=== PATIENT | female | born 1965 | race Caucasian/White ===

== ENCOUNTER → 2016-09-19 | Outpatient (CLI) | payer BC ==
[2016-03-12 16:17] VITALS: BP 113/69
--- NOTE | 2016-09-19 12:36 | MRI ---
MRI lumbar spine without contrast Indication: lower back pain Technique: Multisequence, multiplanar MR images of the lumbar spine were obtained without IV contras t. Comparison: MRI lumbar spine 12/24/13, CT abdomen pelvis May 21, 2012 and January 10, 2012 Findings: There is a partial sacralization of the L5 vertebral body. There is a 1 cm T1/T2 hypointen se lesion within the left T10 vertebral body, which is only evaluated on the sagittal sequences. The lesion was not included in the field of view on the prior MRI examination but appears grossly stabl e in size dating back to the patient's CT abdomen/pelvis exam of 2011. The lesion demonstrates no ap preciable perilesional edema or other aggressive features. Remaining visualized marrow signal is nor mal. No acute fracture or subluxation is identified. The conus terminates normally at L1-L2. The cau da equina is unremarkable. The imaged paraspinal soft tissues demonstrate no gross, unexpected findi ngs. T11-T12, T12-L1, L1-L2, L2-L3, L3-L4: Unremarkable L4-L5: Mild leftward disk bulge and facet arthropathy with mild resultant narrowing of the left late ral recess and neural foramen, overall unchanged since prior exam. L5-S1: Mild facet arthropathy. Otherwise unremarkable. Impression: 1. Mild leftward disk bulge at L4-L5, resulting in overall stable mild left lateral recess and left foraminal narrowing. 2. 1 cm T1/T2 hypointense lesion within the left T10 vertebral body. The lesion is indeterminate but demonstrates no perilesional edema or other aggressive features and appears grossly stable dating b ack to 2011, suggesting benignity. The lesion is densely sclerotic on CT with suggestion of internal intrinsic T1 hyperintense signal, possibly reflecting an atypical intraosseous hemangioma. Reported By:
== END ==
LOC: RAD 10:21
PROVIDERS: ATTEND Internal Medicine
DX: M51.37 Other intervertebral disc degeneration, lumbosacral region (principal)
CPT/HCPCS: 72148

== ENCOUNTER → 2016-12-12 | Outpatient (CLI) | payer BC ==
[2016-03-12 16:17] VITALS: BP 113/69
--- NOTE | 2016-12-13 10:36 | MRI ---
MRI left foot without contrast Indication: Foot pain Comparison: Radiographs 03/26/2016 Technique: Multiplanar multi sequence MR images of the left foot were obtained without contrast. Findings: There is healed remote calcaneal fracture post ORIF with 2 Felipe screws, as seen on the p revious radiograph. Associated susceptibility artifact limits evaluation of the marrow signal in this region. No acute fracture or suspicious marrow signal is appreciated. There is mild degenerative dis ease of the posterior subtalar and talonavicular joints. Mild degenerative changes of the great toe M TP joint are also noted with a bipartite nonedematous medial hallux sesamoid. The Lisfranc joint and ligaments are normal. There is irregularity of the medial navicular with thickening and intermediate signal of the distal p osterior tibialis tendon, which is otherwise grossly intact; these findings are suggestive for previo us tendon repair/reattachment. Small foci of susceptibility in this region are in keeping with previo us surgery. The remaining tendons about the foot and ankle are otherwise unremarkable. The major stab ilizing ligaments about the ankle are grossly intact. The plantar fascia is within normal limits. The re is mild dorsal foot subcutaneous edema, without discrete collection. Impression: 1. Postsurgical changes of previous calcaneal ORIF and distal posterior tibialis tendon repair. No ev idence for acute skeletal abnormality. 2. Mild degenerative changes of the posterior subtalar, talonavicular, and great toe MTP joints. Reported By:
== END ==
LOC: RAD 14:21
PROVIDERS: ATTEND Internal Medicine
DX: M79.672 Pain in left foot (principal); Z98.890 Other specified postprocedural states
CPT/HCPCS: 73721

== ENCOUNTER → 2017-05-29 | Outpatient (CLI) | payer BC ==
[2016-03-12 16:17] VITALS: BP 113/69
[2017-05-29 08:51] LABS: STOOL FOR WBC POSITIVE (NEGATIVE)
[2017-05-29 09:15] LABS: CRYPTOSPORIDIUM PARVUM ANTIGEN NEGATIVE (NEGATIVE); GIARDIA LAMBLIA ANTIGEN NEGATIVE (NEGATIVE)
== END | disposition home or self-care (01) | DRG 392 ==
LOC: LAB 08:00
PROVIDERS: ATTEND Internal Medicine
DX: R19.7 Diarrhea, unspecified (principal); R50.9 Fever, unspecified; R10.13 Epigastric pain
CPT/HCPCS: 82274; 83630; 87045; 87328; 87329; 87336; 87427; 87449; 87493

== ENCOUNTER 2017-06-19 10:15 | Day surgery (SDC) | payer BC ==
[2017-06-19] MEDS ORDERED: D5 LR 1000 ML 1,000 ML IV ONE (10:24)
[2017-06-19 12:51] VITALS: BP 120/78
[2017-06-19] MEDS ORDERED: DIPRIVAN 1 GM ONE (15:13)
== END 2017-06-19 12:30 | disposition home or self-care (01) ==
LOC: SURG1 10:15
PROVIDERS: ATTEND Internal Medicine Gastroenterology
PROC: 0DJ08ZZ Inspection of Upper Intestinal Tract, Via Natural or Artificial Opening Endoscopic (ICD-10-PCS; principal; 2017-06-19 14:00)
PROC: 0DB88ZX Excision of Small Intestine, Via Natural or Artificial Opening Endoscopic, Diagnostic (ICD-10-PCS; principal; 2017-06-19 14:00)
PROC: 0DB68ZX Excision of Stomach, Via Natural or Artificial Opening Endoscopic, Diagnostic (ICD-10-PCS; principal; 2017-06-19 14:00)
DX: R10.13 Epigastric pain (principal); R11.0 Nausea; R19.7 Diarrhea, unspecified; R14.0 Abdominal distension (gaseous); K29.60 Other gastritis without bleeding; K20.8 Other esophagitis; K21.9 Gastro-esophageal reflux disease without esophagitis
CPT/HCPCS: J3490; J7120

== ENCOUNTER 2019-03-04 12:20 | Observation (INO) ==
[2019-03-04 12:27] VITALS: BMI 34.7
--- NOTE | 2019-03-04 12:55 | DR.SOBA ---
HPI Time Seen Time Seen by Provider: 03/04/19 12:37 Primary Care Physician Primary Care Physician: KARAN ROBERSON Complaints Chief Complaint Doctors Comments: CHEST TIGHTNESS, INCREASING SOB TIMES Chief Complaint:: PT C/O SOB TIGHT CHEST,,,, PT WENT TO WALK IN CLINIC IN [place] ON FRIDAY ( OMNICEF AND STERIODS ) PT C/O SHE NOT GETTING BETTER ,BR Reviewed Nurses Notes Reviewed: Yes Source History Provided: Patient Mode of Arrival Mode of Arrival: Ambulatory Timing Onset of Chief Complaint: 02/28/19 Duration Duration: Days Context Onset:: At Rest and With Light Exertion PE Risk Factors:: None History of:: None PMH PMH Past Medical History: Yes Past Medical History: Anxiety and Depression Past Surgical History: Yes Surgical History: 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, 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, Hysterectomy, Ortho Surgery and Tonsillectomy Family History History of Family Medical Conditions: Yes Family Medical History: Cancer, Coronary Artery Disease, Sudden Cardiac and Hypertension Social History Does patient currently use any type of tobacco product: Yes Have you used tobacco products in the last 12 months: Yes Type of Tobacco Use: Cigarettes How many years tobacco product used: 35 Does any household member use tobacco: No Alcohol Use: None Do you use any recreational Drugs:: No Lives With: Family Lives Where: Home infectious screening In the last 2 months have you had wt loss of >10#?: NO Have you had fever, night sweats or hemotysis?: No Have you traveled outside the country in the last 6 months?: No Isolation: Standard PE Vital Signs Vitals: Temperature 97.5 F Pulse Rate 64 Respiratory Rate 15 Blood Pressure [Right Arm] 113/66 Blood Pressure [Left Arm] 120/66 Blood Pressure 139/74 O2 Sat by Pulse Oximetry 98 ROR Labs Reviewed Result Diagrams: 03/04/19 12:56 03/04/19 12:56 Laboratory: WBC 9.4 X10^3/uL (3.6-10.0) 03/04/19 12:56 RBC 4.84 X10^6/uL (3.5-5.4) 03/04/19 12:56 Hgb 13.9 g/dL (12.0-16.0) 03/04/19 12:56 Hct 41.2 % (36.0-47.0) 03/04/19 12:56 MCV 85.2 fL (80.0-100.0) 03/04/19 12:56 MCH 28.7 pg (27.0-34.0) 03/04/19 12:56 MCHC 33.7 g/dL (33.0-35.0) 03/04/19 12:56 RDW 15.5 % (11.6-16.5) 03/04/19 12:56 Plt Count 332 X10^3/uL (150.0-450.0) 03/04/19 12:56 MPV 7.3 fL (7.4-11.0) L 03/04/19 12:56 Neut % (Auto) 76.3 % (42.0-75.0) H 03/04/19 12:56 Lymph % (Auto) 20.2 % (21.0-51.0) L 03/04/19 12:56 [place] % (Auto) 2.8 % (0.0-13.0) 03/04/19 12:56 Eos % (Auto) 0.1 % (0.9-2.9) L 03/04/19 12:56 Baso % (Auto) 0.6 % (0.2-1.0) 03/04/19 12:56 Neut # (Auto) 7.2 x10^3/uL (2.2-4.8) H 03/04/19 12:56 Lymph # (Auto) 1.9 X10^3/uL (1.3-2.9) 03/04/19 12:56 [place] # (Auto) 0.3 x10^3/uL (0.3-0.8) 03/04/19 12:56 Eos # (Auto) 0.0 x10^3/uL (0.0-0.2) 03/04/19 12:56 Baso # (Auto) 0.1 X10^3/uL (0.0-0.1) 03/04/19 12:56 Absolute Nucleated RBC 0.1 /100WBC 03/04/19 12:56 D-Dimer 250 ng/mL (0-400) 03/04/19 12:56 Sodium 138 mmol/L (136-145) 03/04/19 12:56 Corrected Sodium 140 mmol/L (136-145) 03/04/19 12:56 Potassium 4.0 mmol/L (3.5-5.1) 03/04/19 12:56 Chloride 103 mmol/L (98-107) 03/04/19 12:56 Carbon Dioxide 27.0 mmol/L (21-32) 03/04/19 12:56 BUN 15 mg/dL (7-18) 03/04/19 12:56 Creatinine 1.26 mg/dL (0.55-1.02) H 03/04/19 12:56 Est GFR (MDRD) Af Amer 58 (>60) L 03/04/19 12:56 Est GFR (MDRD) Non-Af 48 (>60) L 03/04/19 12:56 Glucose 203 mg/dL (65-99) H 03/04/19 12:56 Calcium 8.4 mg/dL (8.5-10.1) L 03/04/19 12:56 Corrected Calcium 9.1 mg/dL (8.5-10.1) 03/04/19 12:56 Total Bilirubin 0.10 mg/dL (0.2-1.0) L 03/04/19 12:56 AST 24 Units/L (15-37) 03/04/19 12:56 ALT 36 Units/L (12-78) 03/04/19 12:56 Alkaline Phosphatase 95 Units/L (46-116) 03/04/19 12:56 Creatine Kinase 106 Units/L (26-192) 03/04/19 12:56 CK-MB (CK-2) 1.7 ng/mL (0-4.0) 03/04/19 12:56 CK/CKMB % Calc 1.6 % (<4) 03/04/19 12:56 Troponin I < 0.02 ng/mL (0-1.5) 03/04/19 12:56 B-Natriuretic Peptide 41.7 pg/mL (0-79) 03/04/19 12:56 Total Protein 7.0 g/dL (6.4-8.2) 03/04/19 12:56 Albumin 3.1 g/dL (3.4-5.0) L 03/04/19 12:56 Globulin 3.9 g/dL (2.5-4.5) 03/04/19 12:56 Albumin/Globulin Ratio 0.8 Ratio (1.1-2.1) L 03/04/19 12:56 Specimen Type Clean catch urine 03/04/19 13:20 Urine Color Pale yellow (YELLOW) 03/04/19 13:20 Urine Appearance Clear (CLEAR) 03/04/19 13:20 Urine pH 6.0 (5.0 - 8.0) 03/04/19 13:20 Ur Specific [place] 1.010 (1.000-1.030) 03/04/19 13:20 Urine Protein Negative (NEGATIVE) 03/04/19 13:20 Urine Glucose (UA) 3+ (NEGATIVE) 03/04/19 13:20 Urine Ketones Negative (NEGATIVE) 03/04/19 13:20 Urine Occult Blood Negative (NEGATIVE) 03/04/19 13:20 Urine Nitrite Negative (NEGATIVE) 03/04/19 13:20 Urine Bilirubin Negative (NEGATIVE) 03/04/19 13:20 Urine Urobilinogen Normal (NORMAL) 03/04/19 13:20 Ur Leukocyte Esterase Negative (NEGATIVE) 03/04/19 13:20 Opioid Opioid Risk Tool Age (Sea box if 16-45): No History of Preadolescent Sexual Abuse: No Total: 0 Total Score Risk Category: Low Risk Copyright: Ta JO predicting aberrant behaviors Diagnosis Discharge Problem: Acute respiratory distress, Chest pain, Acute bronchitis, Failure of outpatient treatment Instructions Forms: Excuse From Work Patient Portal
[2019-03-04 13:09] LABS: BASOPHILS # (AUTO) 0.1 X10^3/uL (0.0-0.1); BASOPHILS % (AUTO) 0.6 % (0.2-1.0); EOSINOPHILS % (AUTO) 0.1 % (0.9-2.9); HEMATOCRIT 41.2 % (36.0-47.0); HEMOGLOBIN 13.9 g/dL (12.0-16.0); LYMPHOCYTES # (AUTO) 1.9 X10^3/uL (1.3-2.9); LYMPHOCYTES % (AUTO) 20.2 % (21.0-51.0); MEAN CORPUSCULAR HEMOGLOBIN 28.7 pg (27.0-34.0); MEAN CORPUSCULAR HGB CONC 33.7 g/dL (33.0-35.0); MEAN CORPUSCULAR VOLUME 85.2 fL (80.0-100.0); MEAN PLATELET VOLUME 7.3 fL (7.4-11.0); MONOCYTES # (AUTO) 0.3 x10^3/uL (0.3-0.8); MONOCYTES % (AUTO) 2.8 % (0.0-13.0); NEUTROPHILS # (AUTO) 7.2 x10^3/uL (2.2-4.8); NEUTROPHILS % (AUTO) 76.3 % (42.0-75.0); PLATELET COUNT 332 X10^3/uL (150.0-450.0); RED BLOOD COUNT 4.84 X10^6/uL (3.5-5.4); RED CELL DISTRIBUTION WIDTH 15.5 % (11.6-16.5); WHITE BLOOD COUNT 9.4 X10^3/uL (3.6-10.0)
[2019-03-04 13:19] LABS: ALBUMIN 3.1 g/dL (3.4-5.0); CALCIUM 8.4 mg/dL (8.5-10.1); COR CA(FOR HYPOALB) 9.1 mg/dL (8.5-10.1); CREATININE 1.26 mg/dL (0.55-1.02)
[2019-03-04 13:32] LABS: CKMB % 1.6 % (<4); CREATINE KINASE 106 Units/L (26-192); CREATINE KINASE MB 1.7 ng/mL (0-4.0); TROPONIN I < 0.02 ng/mL (0-1.5)
[2019-03-04 13:33] LABS: BILIRUBIN,URINE NEGATIVE (NEGATIVE); BLOOD/HEMOGLOBIN,URINE NEGATIVE (NEGATIVE); GLUCOSE, URINE 3+ (NEGATIVE); KETONES,URINE NEGATIVE (NEGATIVE); LEUKOCYTE ESTERASE ,URINE NEGATIVE (NEGATIVE); NITRITES,URINE NEGATIVE (NEGATIVE); PROTEIN,URINE NEGATIVE (NEGATIVE); UROBILINOGEN,URINE NORMAL (NORMAL)
[2019-03-04 13:36] LABS: APPEARANCE,URINE CLEAR (CLEAR); COLOR,URINE PALE YELLOW (YELLOW)
[2019-03-04] MEDS ORDERED: LEVAQUIN PREMIX IV 750 MG 750 MG/150 ML BAG IV ONE ×2 (14:49→15:04)
[2019-03-04] MEDS ORDERED: NS 1/2 1000 ML IV 1,000 ML IV ONE (15:03)
--- NOTE | 2019-03-04 15:03 | RAD ---
HISTORYCough.LUX WORKMAN/LAT ADULTCOMPARISONMar 2018.FINDINGSThe trachea is midline. The cardiac silhouette is unremarkable. There is some prominence of central bronchopulmonary markings in both lungs. Some fullness to the right and left hilum. The lungs are clear of consolidation, focal infiltrate, effusion or pneumothorax. The bony thorax is unremarkable.IMPRESSION1. Bronchitis versus reactive airway disease.2. Bilateral hilar prominence. Hilar adenopathy is not excluded. Clinical correlation is recommended. Consider chest CT as clinically warranted.Electronically signed by: MO ASCENCIO (Mar 04, 2019 15:02:28)
[2019-03-04] MEDS ORDERED: PERCOCET TAB 5/325 MG ONE (15:12)
[2019-03-04] MEDS ORDERED: PERCOCET TAB 5/325 MG PO ONE (15:24)
[2019-03-04] MEDS: NS 1/2 1000 ML IV 1,000 ML IV SCH (15:25)
[2019-03-04] MEDS ORDERED: SALINE 3% 15 ML NEB TX NEB ONE ×2 (15:55→16:09)
[2019-03-04] MEDS ORDERED: ZANAFLEX PO SCH (16:04)
[2019-03-04] MEDS ORDERED: TESSALON PERLES PO PRN (16:04)
[2019-03-04] MEDS ORDERED: XANAX PO PRN (16:04)
[2019-03-04] MEDS: DUONEB 0.5 MG/3 MG (3 mL) NEB SCH ×2 (16:35→20:55)
[2019-03-04 16:46] LABS: CKMB % 1.5 % (<4); CREATINE KINASE 108 Units/L (26-192); CREATINE KINASE MB 1.6 ng/mL (0-4.0); TROPONIN I < 0.02 ng/mL (0-1.5)
[2019-03-04] MEDS ORDERED: DUONEB 0.5 MG/3 MG (3 mL) NEB SCH (17:00)
[2019-03-04] MEDS: REQUIP PO SCH (20:29)
[2019-03-04] MEDS: LIPITOR TAB 20 MG PO SCH (20:29)
[2019-03-04] MEDS: VIBRAMYCIN 100 MG in D5W 250 ML IV 250 ML IV SCH (20:30)
[2019-03-04] MEDS: LOVENOX INJ 40 MG SYR SC SCH (20:30)
[2019-03-04] MEDS: LOPRESSOR TAB 50 MG PO SCH (20:30)
[2019-03-04] MEDS: PERCOCET TAB 5/325 MG PO PRN (20:45)
[2019-03-04] MEDS: ZANAFLEX PO PRN (20:45)
[2019-03-04 22:47] LABS: CKMB % 1.5 % (<4); CREATINE KINASE 91 Units/L (26-192); CREATINE KINASE MB 1.4 ng/mL (0-4.0); TROPONIN I < 0.02 ng/mL (0-1.5)
[2019-03-05] MEDS: DUONEB 0.5 MG/3 MG (3 mL) NEB SCH ×6 (01:45→20:20)
[2019-03-05] MEDS ORDERED: NS 1/2 1000 ML IV 1,000 ML IV ONE (05:35)
[2019-03-05 05:38] LABS: BASOPHILS % (AUTO) 0.4 % (0.2-1.0); EOSINOPHILS # (AUTO) 0.1 x10^3/uL (0.0-0.2); EOSINOPHILS % (AUTO) 0.6 % (0.9-2.9); HEMATOCRIT 39.7 % (36.0-47.0); HEMOGLOBIN 13.1 g/dL (12.0-16.0); LYMPHOCYTES # (AUTO) 6.4 X10^3/uL (1.3-2.9); LYMPHOCYTES % (AUTO) 55.7 % (21.0-51.0); MEAN CORPUSCULAR HEMOGLOBIN 28.6 pg (27.0-34.0); MEAN CORPUSCULAR VOLUME 86.8 fL (80.0-100.0); MONOCYTES # (AUTO) 0.6 x10^3/uL (0.3-0.8); MONOCYTES % (AUTO) 5.4 % (0.0-13.0); NEUTROPHILS # (AUTO) 4.3 x10^3/uL (2.2-4.8); NEUTROPHILS % (AUTO) 37.9 % (42.0-75.0); PLATELET COUNT 323 X10^3/uL (150.0-450.0); RED BLOOD COUNT 4.57 X10^6/uL (3.5-5.4); RED CELL DISTRIBUTION WIDTH 15.4 % (11.6-16.5); WHITE BLOOD COUNT 11.4 X10^3/uL (3.6-10.0)
[2019-03-05 06:06] LABS: ALANINE AMINOTRANSFERASE 33 Units/L (12-78); ALBUMIN 2.8 g/dL (3.4-5.0); ALKALINE PHOSPHATASE 82 Units/L (46-116); ASPARTATE AMINO TRANSFERASE 21 Units/L (15-37); BLOOD UREA NITROGEN 12 mg/dL (7-18); CALCIUM 8.4 mg/dL (8.5-10.1); CARBON DIOXIDE 28.6 mmol/L (21-32); CHLORIDE 104 mmol/L (98-107); CHOL/HDL RATIO 5.7 (0.0-5.0); CHOLESTEROL 171 mg/dL (0-200); COR CA(FOR HYPOALB) 9.4 mg/dL (8.5-10.1); CREATINE KINASE 75 Units/L (26-192); CREATINE KINASE MB 1.5 ng/mL (0-4.0); CREATININE 0.87 mg/dL (0.55-1.02); HDL CHOLESTEROL 30 mg/dL (40-60); SODIUM 141 mmol/L (136-145); TOTAL PROTEIN 6.4 g/dL (6.4-8.2); TRIGLYCERIDES 133 mg/dL (0-150); TROPONIN I < 0.02 ng/mL (0-1.5); eGFR NON BLACK RACES > 60 (>60)
[2019-03-05] MEDS: NS 1/2 1000 ML IV 1,000 ML IV SCH ×2 (06:10→18:28)
[2019-03-05 07:00] LABS: PLATELET MORPHOLOGY COMMENT NORMAL (NORMAL)
[2019-03-05] MEDS: LOPRESSOR TAB 50 MG PO SCH ×2 (09:40→21:31)
[2019-03-05] MEDS: CYMBALTA PO SCH (09:40)
[2019-03-05] MEDS: NEURONTIN CAP 300 MG PO SCH (09:40)
[2019-03-05] MEDS: LOVENOX INJ 40 MG SYR SC SCH (09:41)
[2019-03-05] MEDS: VIBRAMYCIN 100 MG in D5W 250 ML IV 250 ML IV SCH ×2 (09:41→21:31)
[2019-03-05] MEDS: NexIUM PO SCH (09:42)
[2019-03-05] MEDS ORDERED: TUSSIONEX PENNKINETIC SUSP PO PRN (11:04)
[2019-03-05] MEDS: PERCOCET TAB 5/325 MG PO PRN ×2 (11:06→21:32)
[2019-03-05] MEDS: ROBITUSSIN DM PO SCH ×3 (13:50→21:31)
[2019-03-05] MEDS: LEVAQUIN PREMIX IV 750 MG 750 MG/150 ML BAG IV SCH (14:25)
--- NOTE | 2019-03-05 15:57 | DR.H&P ---
H&P - History & Physical for Day of: H&P Date: 03/04/19 - Chief Complaint Chief Complaint: CHEST TIGHTNESS, CP, CCC - History of Present Illness History of Present Illness: PT IS 53 WF ER ADMISSION AFTER PRESENTING WITH CO CHEST TIGHTNESS AND SOB WITH CP AND RECENT CCC. PT REPORTS SHE WENT TO WALK IN CLINIC IN [place] ON FRIDAY ( OMNICEF AND STERIODS ) WITHOUT IMPROVEMENT. PT REPORTS SHE WAS NEGATIVE FOR THE FLU AT THAT TIME. PT HAS PMH OF MDD, GILBERT. PT DENIES ANY CARDIAC HISTORY. PT HAD CXR WITH BRONCHITIS. PT ADMITTED FOR TREATMENT AND EVALUATION OF ACUTE ILLNESS, R/O AMI. 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, Hysterectomy, Ortho Surgery, Tonsillectomy - Family History Family Medical History: Diabetes Mellitus, Cancer, DC, Coronary Artery Disease, Sudden Cardiac , Hypertension - Social History Does patient currently use any type of tobacco product: Yes Have you used tobacco products in the last 12 months: Yes Type of Tobacco Use: Cigarettes How many years tobacco product used: 35 Does any household member use tobacco: No Alcohol Use: None Drug Use: None - Medications Home Medications: No Known Drug Allergies Allergy (Verified 03/04/19 12:21) CONTINUE taking the following medications duloxetine 60 mg PO DAILY 03/04/19 [History] esomeprazole magnesium [Nexium] 40 mg PO DAILY 03/04/19 [History] gabapentin [Neurontin] 300 mg PO DAILY 03/04/19 [History] oxycodone-acetaminophen [Percocet] 1 tab PO PRN PRN 03/04/19 [History] tizanidine 2 mg PO PRN PRN 03/04/19 [History] - Review of Systems Constitutional: Fever, Chills, Weakness Eyes: No Symptoms Reported ENT: Nose Discharge, Throat Pain Respiratory: Cough, Shortness of Breath, SOB with Excertion, Wheezing Cardiovascular: Chest Pain. denies: Edema Gastrointestinal: No Symptoms Reported, Nausea Genitourinary: No Symptoms Reported Musculoskeletal: No Symptoms Reported Skin: No Symptoms Reported Neurological: No Symptoms Reported - Physical Exam Vital Signs: Temperature 98.1 F Pulse Rate [Right] 58 Pulse Rate 87 Respiratory Rate 18 Blood Pressure [Right Arm] 113/66 Blood Pressure [Left Arm] 134/70 Blood Pressure 139/74 O2 Sat by Pulse Oximetry 99 Oriented: Normal Eyes: Normal Ear: Normal Nose: Normal Throat: Dry Respiratory: Wheezes Throughout, RLL Diminished, LLL Diminished Cardiovascular: Normal. negative: Edema : Normal Auscultation: Bowel Sounds: Normal Palpation: Normal Tenderness: Normal Skin: Normal Musculoskeletal: Normal Psychiatric: Anxiety Affect: Anxious Speech Pattern: Clear, Appropriate - Assessment/Plan (1) Acute bronchitis Status: Acute Plan: ADMIT SERIAL CE AND EKG. RESP CONSULT, IV ATBX, SUPPLEMENTAL O2 PRN. CXR ON ADMISSION. DUO NEBS, BP MONITORING. SPUTUM CULTURE ON ADMISSION (2) Chest pain Status: Acute (3) Failure of outpatient treatment Status: Acute (4) Gastroesophageal reflux disease Status: Active (5) Generalized anxiety disorder Status: Active - Allergies Allergies/Adverse Reactions: Allergies Allergy/AdvReac Type Severity Reaction Status Date / Time No Known Drug Allergies Allergy Verified 03/04/19 12:21
--- NOTE | 2019-03-05 16:06 | PCM.PROG ---
Progress Note - Progress Note for Day of Date of Exam: 03/05/19 - Subjective Subjective: PT IS 53 WF ER ADMISSION WITH FAILED OUTPT BRONCHITIS. PT ALSO CO CHEST TIGHTNESS ON ADMISSION, PT HAD SERIAL CE AND EKGS OBTAINED ON ADMISSION. PT CONTINUES WITH DIFFUSE EXPIRATORY WHEEZES AND RHONCHI THIS AM. PT IS AFEBRILE. SPUTUM CULTURE ORDERD. PT ENCOURAGED TO OBTAIN SPUTUM. ROBITUSSIN DM ADDED WITH IV SOLU MEDROL AND PULMONARY TOILETING. WILL REPEAT AM LABS AND CXR. - Past Medical Family Social History Past Med/Fam/Surg Hx: No changes since H&P Allergies: Allergies No Known Drug Allergies Allergy (Verified 03/04/19 12:21) - Review of Systems ROS: No change since H&P - Vital Signs and I&O's Vital Signs: Temperature 98.1 F Pulse Rate [Right] 58 Pulse Rate 87 Respiratory Rate 18 Blood Pressure [Right Arm] 113/66 Blood Pressure [Left Arm] 134/70 Blood Pressure 139/74 O2 Sat by Pulse Oximetry 99 Intake and Output: Intake & Output 03/03/19 03/04/19 03/05/19 03/06/19 11:59 11:59 11:59 11:59 Intake Total 1280 / 1280 Balance 1280 / 1280 - Physical Exam Oriented: Normal Eyes: Normal Ear: Normal Nose: Normal Throat: Dry Respiratory: Diminished, Wheezes, Rhonchi Cardiovascular: Normal. negative: Edema : Normal Auscultation: Bowel Sounds: Normal Tenderness: Normal Skin: Normal Musculoskeletal: Normal Psychiatric: Anxiety Affect: Anxious Speech Pattern: Clear, Appropriate - Laboratory and Diagnostics Result Diagrams: 03/05/19 04:11 03/05/19 04:11 Labs: 03/04/19 17:19 Sputum - Expectorated Sputum Sputum Culture - Preliminary 03/04/19 17:19 Sputum - Expectorated Sputum - Final Laboratory WBC 11.4 X10^3/uL (3.6-10.0) H 03/05/19 04:11 RBC 4.57 X10^6/uL (3.5-5.4) 03/05/19 04:11 Hgb 13.1 g/dL (12.0-16.0) 03/05/19 04:11 Hct 39.7 % (36.0-47.0) 03/05/19 04:11 MCV 86.8 fL (80.0-100.0) 03/05/19 04:11 MCH 28.6 pg (27.0-34.0) 03/05/19 04:11 MCHC 33.0 g/dL (33.0-35.0) 03/05/19 04:11 RDW 15.4 % (11.6-16.5) 03/05/19 04:11 Plt Count 323 X10^3/uL (150.0-450.0) 03/05/19 04:11 Plt Count Comment Adequate (ADEQUATE) 03/05/19 04:11 MPV 8.0 fL (7.4-11.0) 03/05/19 04:11 Neut % (Auto) 37.9 % (42.0-75.0) L 03/05/19 04:11 Lymph % (Auto) 55.7 % (21.0-51.0) H 03/05/19 04:11 [place] % (Auto) 5.4 % (0.0-13.0) 03/05/19 04:11 Eos % (Auto) 0.6 % (0.9-2.9) L 03/05/19 04:11 Baso % (Auto) 0.4 % (0.2-1.0) 03/05/19 04:11 Neut # (Auto) 4.3 x10^3/uL (2.2-4.8) 03/05/19 04:11 Lymph # (Auto) 6.4 X10^3/uL (1.3-2.9) H 03/05/19 04:11 [place] # (Auto) 0.6 x10^3/uL (0.3-0.8) 03/05/19 04:11 Eos # (Auto) 0.1 x10^3/uL (0.0-0.2) 03/05/19 04:11 Baso # (Auto) 0.0 X10^3/uL (0.0-0.1) 03/05/19 04:11 Absolute Nucleated RBC 0.0 /100WBC 03/05/19 04:11 Total Counted 100 03/05/19 04:11 Neutrophils % (Manual) 41 % (39-76) 03/05/19 04:11 Lymphocytes % (Manual) 53 % (13-43) H 03/05/19 04:11 Monocytes % (Manual) 6 % (4-9) 03/05/19 04:11 Plt Morphology Comment Normal (NORMAL) 03/05/19 04:11 RBC Morphology Normal (NORMAL) 03/05/19 04:11 D-Dimer 250 ng/mL (0-400) 03/04/19 12:56 Sodium 141 mmol/L (136-145) 03/05/19 04:11 Corrected Sodium TNP 03/05/19 04:11 Potassium 4.0 mmol/L (3.5-5.1) 03/05/19 04:11 Chloride 104 mmol/L (98-107) 03/05/19 04:11 Carbon Dioxide 28.6 mmol/L (21-32) 03/05/19 04:11 BUN 12 mg/dL (7-18) 03/05/19 04:11 Creatinine 0.87 mg/dL (0.55-1.02) 03/05/19 04:11 Est GFR (MDRD) Af Amer > 60 (>60) 03/05/19 04:11 Est GFR (MDRD) Non-Af > 60 (>60) 03/05/19 04:11 Glucose 100 mg/dL (65-99) H 03/05/19 04:11 Calcium 8.4 mg/dL (8.5-10.1) L 03/05/19 04:11 Corrected Calcium 9.4 mg/dL (8.5-10.1) 03/05/19 04:11 Total Bilirubin 0.20 mg/dL (0.2-1.0) 03/05/19 04:11 AST 21 Units/L (15-37) 03/05/19 04:11 ALT 33 Units/L (12-78) 03/05/19 04:11 Alkaline Phosphatase 82 Units/L (46-116) 03/05/19 04:11 Creatine Kinase 75 Units/L (26-192) 03/05/19 04:11 CK-MB (CK-2) 1.5 ng/mL (0-4.0) 03/05/19 04:11 CK/CKMB % Calc 2.0 % (<4) 03/05/19 04:11 Troponin I < 0.02 ng/mL (0-1.5) 03/05/19 04:11 B-Natriuretic Peptide 41.7 pg/mL (0-79) 03/04/19 12:56 Total Protein 6.4 g/dL (6.4-8.2) 03/05/19 04:11 Albumin 2.8 g/dL (3.4-5.0) L 03/05/19 04:11 Globulin 3.6 g/dL (2.5-4.5) 03/05/19 04:11 Albumin/Globulin Ratio 0.8 Ratio (1.1-2.1) L 03/05/19 04:11 Triglycerides 133 mg/dL (0-150) 03/05/19 04:11 Cholesterol 171 mg/dL (0-200) 03/05/19 04:11 LDL Cholesterol, Calc 114 mg/dL (0-100) H 03/05/19 04:11 HDL Cholesterol 30 mg/dL (40-60) L 03/05/19 04:11 Cholesterol/HDL Ratio 5.7 (0.0-5.0) H 03/05/19 04:11 Specimen Type Clean catch urine 03/04/19 13:20 Urine Color Pale yellow (YELLOW) 03/04/19 13:20 Urine Appearance Clear (CLEAR) 03/04/19 13:20 Urine pH 6.0 (5.0 - 8.0) 03/04/19 13:20 Ur Specific [place] 1.010 (1.000-1.030) 03/04/19 13:20 Urine Protein Negative (NEGATIVE) 03/04/19 13:20 Urine Glucose (UA) 3+ (NEGATIVE) 03/04/19 13:20 Urine Ketones Negative (NEGATIVE) 03/04/19 13:20 Urine Occult Blood Negative (NEGATIVE) 03/04/19 13:20 Urine Nitrite Negative (NEGATIVE) 03/04/19 13:20 Urine Bilirubin Negative (NEGATIVE) 03/04/19 13:20 Urine Urobilinogen Normal (NORMAL) 03/04/19 13:20 Ur Leukocyte Esterase Negative (NEGATIVE) 03/04/19 13:20 - Plan (1) Acute bronchitis Status: Acute Plan: SERIAL CE AND EKG ON ADMISSION STABLE. RESP CONSULT, IV ATBX, SUPPLEMENTAL O2 PRN. CXR Q AM. DUO NEBS, BP MONITORING. SPUTUM CULTURE ON ADMISSION (2) Chest pain Status: Acute (3) Failure of outpatient treatment Status: Acute (4) Gastroesophageal reflux disease Status: Active (5) Generalized anxiety disorder Status: Active
[2019-03-05] MEDS: PULMICORT NEB TX 0.5 MG NEB SCH (20:20)
[2019-03-05] MEDS: LIPITOR TAB 20 MG PO SCH (21:31)
[2019-03-05] MEDS: ZANAFLEX PO PRN (21:31)
[2019-03-05] MEDS: REQUIP PO SCH (21:32)
[2019-03-06] MEDS: DUONEB 0.5 MG/3 MG (3 mL) NEB SCH ×6 (00:42→20:35)
[2019-03-06] MEDS: NS 1/2 1000 ML IV 1,000 ML IV SCH ×2 (04:53→21:14)
[2019-03-06] MEDS ORDERED: NS 1/2 1000 ML IV 1,000 ML IV ONE ×2 (04:54→19:31)
[2019-03-06 05:26] LABS: BASOPHILS # (AUTO) 0.1 X10^3/uL (0.0-0.1); BASOPHILS % (AUTO) 1.1 % (0.2-1.0); EOSINOPHILS # (AUTO) 0.1 x10^3/uL (0.0-0.2); EOSINOPHILS % (AUTO) 0.9 % (0.9-2.9); HEMATOCRIT 41.3 % (36.0-47.0); HEMOGLOBIN 13.9 g/dL (12.0-16.0); LYMPHOCYTES # (AUTO) 3.9 X10^3/uL (1.3-2.9); LYMPHOCYTES % (AUTO) 40.3 % (21.0-51.0); MEAN CORPUSCULAR HGB CONC 33.6 g/dL (33.0-35.0); MEAN CORPUSCULAR VOLUME 86.3 fL (80.0-100.0); MEAN PLATELET VOLUME 7.6 fL (7.4-11.0); MONOCYTES # (AUTO) 0.5 x10^3/uL (0.3-0.8); MONOCYTES % (AUTO) 5.7 % (0.0-13.0); PLATELET COUNT 302 X10^3/uL (150.0-450.0); RED BLOOD COUNT 4.79 X10^6/uL (3.5-5.4); RED CELL DISTRIBUTION WIDTH 15.8 % (11.6-16.5); WHITE BLOOD COUNT 9.6 X10^3/uL (3.6-10.0)
[2019-03-06 05:44] LABS: ALANINE AMINOTRANSFERASE 26 Units/L (12-78); ALBUMIN 2.7 g/dL (3.4-5.0); ALKALINE PHOSPHATASE 92 Units/L (46-116); ASPARTATE AMINO TRANSFERASE 12 Units/L (15-37); BLOOD UREA NITROGEN 10 mg/dL (7-18); CALCIUM 8.1 mg/dL (8.5-10.1); CHLORIDE 106 mmol/L (98-107); COR CA(FOR HYPOALB) 9.1 mg/dL (8.5-10.1); CREATININE 0.97 mg/dL (0.55-1.02); SODIUM 143 mmol/L (136-145); TOTAL PROTEIN 6.4 g/dL (6.4-8.2); eGFR NON BLACK RACES > 60 (>60)
[2019-03-06] MEDS: CYMBALTA PO SCH (09:06)
[2019-03-06] MEDS: NexIUM PO SCH (09:06)
[2019-03-06] MEDS: PULMICORT NEB TX 0.5 MG NEB SCH ×2 (09:06→20:35)
[2019-03-06] MEDS: LOPRESSOR TAB 50 MG PO SCH ×2 (09:06→21:14)
[2019-03-06] MEDS: LOVENOX INJ 40 MG SYR SC SCH (09:07)
[2019-03-06] MEDS: NEURONTIN CAP 300 MG PO SCH (09:07)
[2019-03-06] MEDS: LEVAQUIN PREMIX IV 750 MG 750 MG/150 ML BAG IV SCH (09:09)
[2019-03-06] MEDS: VIBRAMYCIN 100 MG in D5W 250 ML IV 250 ML IV SCH ×2 (10:00→21:15)
[2019-03-06] MEDS: ROBITUSSIN DM PO SCH ×4 (11:13→21:13)
[2019-03-06] MEDS: LIPITOR TAB 20 MG PO SCH (21:13)
[2019-03-06] MEDS: REQUIP PO SCH (21:14)
[2019-03-07] MEDS: DUONEB 0.5 MG/3 MG (3 mL) NEB SCH ×4 (00:37→11:59)
[2019-03-07 06:04] LABS: BASOPHILS # (AUTO) 0.1 X10^3/uL (0.0-0.1); BASOPHILS % (AUTO) 1.5 % (0.2-1.0); EOSINOPHILS # (AUTO) 0.1 x10^3/uL (0.0-0.2); EOSINOPHILS % (AUTO) 1.2 % (0.9-2.9); HEMATOCRIT 40.4 % (36.0-47.0); HEMOGLOBIN 13.3 g/dL (12.0-16.0); LYMPHOCYTES # (AUTO) 4.7 X10^3/uL (1.3-2.9); LYMPHOCYTES % (AUTO) 47.3 % (21.0-51.0); MEAN CORPUSCULAR HEMOGLOBIN 28.5 pg (27.0-34.0); MEAN CORPUSCULAR HGB CONC 32.9 g/dL (33.0-35.0); MEAN CORPUSCULAR VOLUME 86.6 fL (80.0-100.0); MEAN PLATELET VOLUME 8.2 fL (7.4-11.0); MONOCYTES # (AUTO) 0.4 x10^3/uL (0.3-0.8); NEUTROPHILS # (AUTO) 4.6 x10^3/uL (2.2-4.8); PLATELET COUNT 319 X10^3/uL (150.0-450.0); RED BLOOD COUNT 4.67 X10^6/uL (3.5-5.4); RED CELL DISTRIBUTION WIDTH 15.7 % (11.6-16.5)
[2019-03-07 06:17] LABS: ALANINE AMINOTRANSFERASE 38 Units/L (12-78); ALBUMIN 2.7 g/dL (3.4-5.0); ALKALINE PHOSPHATASE 84 Units/L (46-116); ASPARTATE AMINO TRANSFERASE 25 Units/L (15-37); BLOOD UREA NITROGEN 11 mg/dL (7-18); CALCIUM 8.2 mg/dL (8.5-10.1); CARBON DIOXIDE 30.8 mmol/L (21-32); CHLORIDE 106 mmol/L (98-107); COR CA(FOR HYPOALB) 9.2 mg/dL (8.5-10.1); COR NA(FOR HYPERGLY) 142 mmol/L (136-145); CREATININE 0.88 mg/dL (0.55-1.02); SODIUM 142 mmol/L (136-145); TOTAL PROTEIN 6.2 g/dL (6.4-8.2); eGFR NON BLACK RACES > 60 (>60)
--- NOTE | 2019-03-07 07:04 | RAD ---
HISTORYChest pain, respiratory distressSTUDYCHEST, PA/LAT [id number] is within normal limits in size. The dustin are normal. The lungs are free of acute alveolar infiltrates. No pleural effusions are identified. The bony thorax is unremarkable.IMPRESSIONNo significant abnormality identifiedElectronically signed by: FRANK CARRION (Mar 07, 2019 07:03:23)
[2019-03-07] MEDS: LEVAQUIN PREMIX IV 750 MG 750 MG/150 ML BAG IV SCH (08:24)
[2019-03-07] MEDS: ROBITUSSIN DM PO SCH (08:26)
[2019-03-07] MEDS: NexIUM PO SCH (08:27)
[2019-03-07] MEDS: NEURONTIN CAP 300 MG PO SCH (08:27)
[2019-03-07] MEDS: LOPRESSOR TAB 50 MG PO SCH (08:27)
[2019-03-07] MEDS: CYMBALTA PO SCH (08:28)
[2019-03-07] MEDS: LOVENOX INJ 40 MG SYR SC SCH (08:28)
[2019-03-07] MEDS: PULMICORT NEB TX 0.5 MG NEB SCH (09:04)
[2019-03-07] MEDS: VIBRAMYCIN 100 MG in D5W 250 ML IV 250 ML IV SCH (10:00)
[2019-03-07 12:04] VITALS: BP 127/61
--- NOTE | 2019-03-07 12:07 | PCM.PROG ---
Progress Note - Progress Note for Day of Date of Exam: 03/06/19 - Subjective Subjective: WAS ADMITTED FOR CHEST PAIN, ACUTE BRONCHITIS, FAILED OUTPATIENT TREATMENT, AND ACUTE RESPIRATORY DISTRESS. TODAY, SHE IS ALERT AND OREINTED, LYING IN BED ON MORNING ROUNDS. SHE CONTINUES WITH COMPLAINTS OF A PRODUCTIVE COUGH AND SHORTNESS OF BREATH. ON EXAMINATION, HEART IS REGULAR IN RATE AND RHYTHM. EXPIRATORY WHEEZING NOTED. ABDOMEN IS ROUND, SOFT, AND NON- TENDER WITH NORMAL BOWEL SOUNDS NOTED IN ALL QUADRANTS. HER VITALS THIS MORNING ARE: 97.9-64-18-97%-129/68. LABS WERE OBTAINED. ABNORMAL LAB VALUES INCLUDE THE FOLLOWING: CALCIUM 8.1, AST 12, ALBUMIN 2.7. CARDIAC ENZYMES WITHIN NORMAL LIMITS. SPUTUM CULTURE IS PENDING. SHE IS CURRENTLY RECEIVING IV LEVAQUIN, IV DOXYCYCLINE, NS AT 80 ML/HR, RESPIRATORY TX, SUPPLEMENTAL OXYGEN, AND HOME MEDICATIONS WERE RESUMED. WE WILL CONTINUE WITH CURRENT PLAN OF CARE TODAY. OTHERWISE, WE WILL FOLLOW UP WITH AM LABS AND CONTINUE TO MONITOR. - Past Medical Family Social History Past Med/Fam/Surg Hx: No changes since H&P Allergies: Allergies No Known Drug Allergies Allergy (Verified 03/04/19 12:21) - Review of Systems ROS: No change since H&P - Vital Signs and I&O's Vital Signs: Temperature 97.8 F Pulse Rate [Left Brachial] 82 Pulse Rate [Right] 62 Pulse Rate 67 Respiratory Rate 18 Blood Pressure [Right Arm] 113/66 Blood Pressure [Left Arm] 127/61 Blood Pressure 139/74 O2 Sat by Pulse Oximetry 99 Intake and Output: Intake & Output 03/05/19 03/06/19 03/07/19 03/08/19 11:59 11:59 11:59 11:59 Intake Total 1280 / 1280 2640 / 2640 2550 / 2550 Balance 1280 / 1280 2640 / 2640 2550 / 2550 - Physical Exam Oriented: Normal Eyes: Normal Ear: Normal Nose: Normal Throat: Dry Respiratory: Generalized, Diminished, Wheezes Cardiovascular: Normal. negative: Edema : Normal Auscultation: Bowel Sounds: Normal Palpation: Normal Tenderness: Normal Skin: Normal Musculoskeletal: Normal Psychiatric: Anxiety Affect: Anxious Speech Pattern: Clear - Laboratory and Diagnostics Result Diagrams: 03/07/19 05:26 03/07/19 05:26 Labs: 03/04/19 17:19 Sputum - Expectorated Sputum Sputum Culture - Final 03/04/19 17:19 Sputum - Expectorated Sputum - Final Laboratory WBC 10.0 X10^3/uL (3.6-10.0) 03/07/19 05:26 RBC 4.67 X10^6/uL (3.5-5.4) 03/07/19 05:26 Hgb 13.3 g/dL (12.0-16.0) 03/07/19 05:26 Hct 40.4 % (36.0-47.0) 03/07/19 05:26 MCV 86.6 fL (80.0-100.0) 03/07/19 05:26 MCH 28.5 pg (27.0-34.0) 03/07/19 05:26 MCHC 32.9 g/dL (33.0-35.0) L 03/07/19 05:26 RDW 15.7 % (11.6-16.5) 03/07/19 05:26 Plt Count 319 X10^3/uL (150.0-450.0) 03/07/19 05:26 Plt Count Comment Adequate (ADEQUATE) 03/05/19 04:11 MPV 8.2 fL (7.4-11.0) 03/07/19 05:26 Neut % (Auto) 46.0 % (42.0-75.0) 03/07/19 05:26 Lymph % (Auto) 47.3 % (21.0-51.0) 03/07/19 05:26 [place] % (Auto) 4.0 % (0.0-13.0) 03/07/19 05:26 Eos % (Auto) 1.2 % (0.9-2.9) 03/07/19 05:26 Baso % (Auto) 1.5 % (0.2-1.0) H 03/07/19 05:26 Neut # (Auto) 4.6 x10^3/uL (2.2-4.8) 03/07/19 05:26 Lymph # (Auto) 4.7 X10^3/uL (1.3-2.9) H 03/07/19 05:26 [place] # (Auto) 0.4 x10^3/uL (0.3-0.8) 03/07/19 05:26 Eos # (Auto) 0.1 x10^3/uL (0.0-0.2) 03/07/19 05:26 Baso # (Auto) 0.1 X10^3/uL (0.0-0.1) 03/07/19 05:26 Absolute Nucleated RBC 0.1 /100WBC 03/07/19 05:26 Total Counted 100 03/05/19 04:11 Neutrophils % (Manual) 41 % (39-76) 03/05/19 04:11 Lymphocytes % (Manual) 53 % (13-43) H 03/05/19 04:11 Monocytes % (Manual) 6 % (4-9) 03/05/19 04:11 Plt Morphology Comment Normal (NORMAL) 03/05/19 04:11 RBC Morphology Normal (NORMAL) 03/05/19 04:11 D-Dimer 250 ng/mL (0-400) 03/04/19 12:56 Sodium 142 mmol/L (136-145) 03/07/19 05:26 Corrected Sodium 142 mmol/L (136-145) 03/07/19 05:26 Potassium 4.1 mmol/L (3.5-5.1) 03/07/19 05:26 Chloride 106 mmol/L (98-107) 03/07/19 05:26 Carbon Dioxide 30.8 mmol/L (21-32) 03/07/19 05:26 BUN 11 mg/dL (7-18) 03/07/19 05:26 Creatinine 0.88 mg/dL (0.55-1.02) 03/07/19 05:26 Est GFR (MDRD) Af Amer > 60 (>60) 03/07/19 05:26 Est GFR (MDRD) Non-Af > 60 (>60) 03/07/19 05:26 Glucose 115 mg/dL (65-99) H 03/07/19 05:26 Calcium 8.2 mg/dL (8.5-10.1) L 03/07/19 05:26 Corrected Calcium 9.2 mg/dL (8.5-10.1) 03/07/19 05:26 Total Bilirubin 0.10 mg/dL (0.2-1.0) L 03/07/19 05:26 AST 25 Units/L (15-37) 03/07/19 05:26 ALT 38 Units/L (12-78) 03/07/19 05:26 Alkaline Phosphatase 84 Units/L (46-116) 03/07/19 05:26 Creatine Kinase 75 Units/L (26-192) 03/05/19 04:11 CK-MB (CK-2) 1.5 ng/mL (0-4.0) 03/05/19 04:11 CK/CKMB % Calc 2.0 % (<4) 03/05/19 04:11 Troponin I < 0.02 ng/mL (0-1.5) 03/05/19 04:11 B-Natriuretic Peptide 41.7 pg/mL (0-79) 03/04/19 12:56 Total Protein 6.2 g/dL (6.4-8.2) L 03/07/19 05:26 Albumin 2.7 g/dL (3.4-5.0) L 03/07/19 05:26 Globulin 3.5 g/dL (2.5-4.5) 03/07/19 05:26 Albumin/Globulin Ratio 0.8 Ratio (1.1-2.1) L 03/07/19 05:26 Triglycerides 133 mg/dL (0-150) 03/05/19 04:11 Cholesterol 171 mg/dL (0-200) 03/05/19 04:11 LDL Cholesterol, Calc 114 mg/dL (0-100) H 03/05/19 04:11 HDL Cholesterol 30 mg/dL (40-60) L 03/05/19 04:11 Cholesterol/HDL Ratio 5.7 (0.0-5.0) H 03/05/19 04:11 Specimen Type Clean catch urine 03/04/19 13:20 Urine Color Pale yellow (YELLOW) 03/04/19 13:20 Urine Appearance Clear (CLEAR) 03/04/19 13:20 Urine pH 6.0 (5.0 - 8.0) 03/04/19 13:20 Ur Specific [place] 1.010 (1.000-1.030) 03/04/19 13:20 Urine Protein Negative (NEGATIVE) 03/04/19 13:20 Urine Glucose (UA) 3+ (NEGATIVE) 03/04/19 13:20 Urine Ketones Negative (NEGATIVE) 03/04/19 13:20 Urine Occult Blood Negative (NEGATIVE) 03/04/19 13:20 Urine Nitrite Negative (NEGATIVE) 03/04/19 13:20 Urine Bilirubin Negative (NEGATIVE) 03/04/19 13:20 Urine Urobilinogen Normal (NORMAL) 03/04/19 13:20 Ur Leukocyte Esterase Negative (NEGATIVE) 03/04/19 13:20 - Plan (1) Acute bronchitis Status: Acute Qualifiers: Bronchitis organism: unspecified organism Qualified Code(s): J20.9 - Acute bronchitis, unspecified Plan: SERIAL CE AND EKG ON ADMISSION STABLE. IV ATBX, SUPPLEMENTAL O2 PRN. CXR Q AM. DUO NEBS, BP MONITORING. SPUTUM CULTURE ON ADMISSION (2) Acute respiratory distress Status: Acute (3) Chest pain Status: Resolved Qualifiers: Chest pain type: unspecified Qualified Code(s): R07.9 - Chest pain, unspecified Plan: CONTINUE TO MONITOR
== END 2019-03-07 12:45 | disposition home or self-care (01) ==
LOC: ER 12:20 → MED/SURG 12:20
PROVIDERS: ADMIT Internal Medicine; ATTEND Internal Medicine
DX: F41.8 Other specified anxiety disorders; Z79.899 Other long term (current) drug therapy; R06.03 Acute respiratory distress; J20.9 Acute bronchitis, unspecified; F32.89 Other specified depressive episodes; R94.4 Abnormal results of kidney function studies; R73.09 Other abnormal glucose; R07.89 Other chest pain; K21.9 Gastro-esophageal reflux disease without esophagitis
CPT/HCPCS: 36415; 71020; 71046; 80053; 80061; 81003; 82550; 82553; 83880; 84484; 85025; 85378; 87070; 87205; 93005; 94640; 94760; 96360; 96361; 96365; 96372; 96374; 96375; 99284; A4222; G0378; J1650; J1956; J3490; J7060; J7620; J7626